=== PATIENT | female | born 1965 | race Caucasian/White ===

== ENCOUNTER 2018-05-01 06:48 | Day surgery (SDC) | payer OTHER ==
[~2018-05-01] VITALS: Ht 160 cm; Wt 117.7 kg
[~2018-05-01 06:48] MED LIST: ALBU8HFA IH; AZIT500T2 PO; FLUO40CA PO; HYDR200T4 PO; IPRA4AER IH; METO50 PO; NORT50CA PO; PRED10 PO; PRED20 PO; PRED5 PO; ZOLP10TA7 PO
[2018-05-01] MEDS ORDERED: LIDOCAINE 4% 50 ML SOLUTION TP ONE (06:49)
[2018-05-01] MEDS ORDERED: ALBUTEROL SULFATE 2.5 MG/0.5 ML NEB SOLUTION NEB ONE (06:49)
[2018-05-01] MEDS ORDERED: BENZOCAINE 20% 50 MCG/SPRAY 57 GM TP ONE (06:49)
[2018-05-01] MEDS ORDERED: LIDOCAINE 2% 5 ML JELLY TP ONE (06:49)
[2018-05-01] MEDS ORDERED: SODIUM CHLORIDE 0.9% 1,000 ML IV ONE ×2 (07:00→07:18)
[2018-05-01] MEDS ORDERED: MIDAZOLAM HCL 2 MG/2 ML VIAL ONE (08:09)
[2018-05-01] MEDS ORDERED: FentaNYL CITRATE-PF 100 MCG/2 ML VIAL ONE (08:09)
[2018-05-01] MEDS ORDERED: IBUP-2070 PO (08:45)
[2018-05-01] MEDS ORDERED: OMEP20 PO (08:45)
[2018-05-01] MEDS ORDERED: MOME13HF2 IH (08:45)
[2018-05-01] MEDS ORDERED: SERT100T12 PO (08:45)
[2018-05-01] MEDS ORDERED: ATOR20TA86 PO (08:45)
[2018-05-01] MEDS ORDERED: FLUT16H NASAL (08:45)
[2018-05-01] MEDS ORDERED: NORT25 PO (08:45)
[2018-05-01] MEDS ORDERED: MethylPREDNISolone SOD SUCC 125 MG/2 ML VIAL IVP ONE (09:00)
[2018-05-01] MEDS ORDERED: MethylPREDNISolone SOD SUCC 125 MG/2 ML VIAL ONE (09:03)
[2018-05-01] MEDS ORDERED: PROMETH/PHENYLEPHRINE/CODEINE 5 ML ORAL.SYG PO ONE (09:15)
[2018-05-01] MEDS ORDERED: OXYGEN THERAPY IH SCH (20:00)
== END 2018-05-01 10:15 | disposition home or self-care (01) ==
LOC: SURGERY 06:48
PROVIDERS: ATTEND Internal Medicine Critical Care Medicine
DX: J38.4 Edema of larynx (principal); B37.0 Candidal stomatitis; J44.9 Chronic obstructive pulmonary disease, unspecified; M79.7 Fibromyalgia; I47.1 Supraventricular tachycardia; F17.210 Nicotine dependence, cigarettes, uncomplicated; Z79.899 Other long term (current) drug therapy; Z98.890 Other specified postprocedural states
CPT/HCPCS: 31623; 31624; 71045; 87015; 87070; 87101; 87205; 87206; 87220; 88108; 93005; J2250; J2370; J2930; J3010; J7030

== ENCOUNTER 2020-08-06 06:04 | Day surgery (SDC) | payer OTHER ==
[2020-08-05 15:23] LABS: COVID AG,FIA SOURCE NASOPHARYNGEAL
[~2020-08-06] VITALS: Ht 160 cm; Wt 101.4 kg
[~2020-08-06 06:04] MED LIST changes: -ALBU8HFA IH; +ATOR20TA86 PO; -AZIT500T2 PO; -FLUO40CA PO; +FLUT16H NASAL; +IBUP-2070 PO; -IPRA4AER IH; +MOME13HF2 IH; +NORT25 PO; -NORT50CA PO; +OMEP20 PO; -PRED10 PO; -PRED20 PO; -PRED5 PO; +SERT-162 PO; -ZOLP10TA7 PO; +ZOLP10TA8 PO
[2020-08-06] MEDS ORDERED: SODIUM CHLORIDE 0.9% 1,000 ML ONE (06:07)
[2020-08-06] MEDS ORDERED: MIDAZOLAM HCL 2 MG/2 ML VIAL ONE (07:17)
[2020-08-06] MEDS ORDERED: FentaNYL CITRATE PF 100 MCG/2 ML VIAL ONE (07:17)
[2020-08-06] MEDS ORDERED: MethylPREDNISolone SOD SUCC 125 MG/2 ML VIAL IVP ONE (08:45)
[2020-08-06] MEDS ORDERED: MethylPREDNISolone SOD SUCC 125 MG/2 ML VIAL ONE (09:10)
[2020-08-06] MEDS ORDERED: SODIUM CHLORIDE 0.9% 1,000 ML IV ONE (13:00)
[2020-08-06] MEDS ORDERED: LIDOCAINE 2% 30 ML JELLY ONE (14:56)
[2020-08-06] MEDS ORDERED: BENZOCAINE 20% 50 MCG/SPRAY 57 GM ONE (14:56)
[2020-08-06] MEDS ORDERED: ALBUTEROL SULFATE 2.5 MG/0.5 ML NEB SOLUTION NEB ONE (14:56)
[2020-08-06] MEDS ORDERED: OXYGEN THERAPY IH SCH (20:00)
== END 2020-08-06 09:45 | disposition home or self-care (01) ==
LOC: SURGERY 06:04
PROVIDERS: ATTEND Internal Medicine Critical Care Medicine
DX: J38.4 Edema of larynx (principal); B37.0 Candidal stomatitis; I10 Essential (primary) hypertension; J45.909 Unspecified asthma, uncomplicated; Z98.890 Other specified postprocedural states; Z79.899 Other long term (current) drug therapy
CPT/HCPCS: 31623; 31624; 71045; 87015; 87070; 87101; 87205; 87206; 87220; 87426; 88108; 88184; 88185; 88312; C9803; J2250; J2930; J3010; J7030; J7613